=== PATIENT | female | born 1975 | race African-American/Black ===

== ENCOUNTER 2016-10-29 00:49 | Emergency (ER) | payer MEDICAID, OTHER ==
[~2016-10-29] VITALS: Ht 172.7 cm; Wt 102.1 kg
[2016-10-29] MEDS ORDERED: NS IV 1000 ML 1,000 ML IV ONE (01:33)
[2016-10-29] MEDS ORDERED: Namenda (01:35)
[2016-10-29] MEDS ORDERED: Neurontin (01:35)
[2016-10-29] MEDS ORDERED: Celebrex (01:35)
[2016-10-29] MEDS ORDERED: Trazadone (01:35)
[2016-10-29] MEDS ORDERED: TRAM50TA2 PO (01:35)
[2016-10-29] MEDS ORDERED: Ferrous Sulfate (01:35)
[2016-10-29] MEDS ORDERED: CLON0.5T3 PO (01:35)
[2016-10-29] MEDS ORDERED: Albuterol Sulfate (01:35)
[2016-10-29] MEDS ORDERED: Keppra (01:35)
[2016-10-29] MEDS ORDERED: Eliquis (01:35)
[2016-10-29] MEDS ORDERED: Anoro Ellipta (01:35)
[2016-10-29 01:41] LABS: BASOPHILS % (AUTO) 1 % (0-10); EOSINOPHILS % (AUTO) 0 % (0-10); LYMPHOCYTES # (AUTO) 2.1 X 10^3 (1.0-4.0); LYMPHOCYTES % (AUTO) 25 % (12-44); MEAN CORPUSCULAR HEMOGLOBIN 32 PG (25-34); MEAN CORPUSCULAR HGB CONC 33 G/DL (32-36); MEAN CORPUSCULAR VOLUME 96 FL (80-99); MEAN PLATELET VOLUME 10.5 FL (7.4-10.4); MONOCYTES # (AUTO) 0.5 X 10^3 (0.0-1.0); MONOCYTES % (AUTO) 7 % (0-12); NEUTROPHILS # (AUTO) 5.5 X 10^3 (1.8-7.8); NEUTROPHILS % (AUTO) 68 % (42-75); PLATELET COUNT 250 10^3/uL (130-400); RED BLOOD COUNT 4.36 10^6/uL (4.35-5.85); RED CELL DISTRIBUTION WIDTH 12.1 % (10.0-14.5); WHITE BLOOD COUNT 8.1 10^3/uL (4.3-11.0)
[2016-10-29 01:56] LABS: ALANINE AMINOTRANSFERASE 10 U/L (0-55); ALBUMIN 4.2 G/DL (3.2-4.5); ANION GAP 11 MMOL/L (5-14); ASPARTATE AMINO TRANSFERASE 11 U/L (5-34); BILIRUBIN,TOTAL 0.3 MG/DL (0.1-1.0); BLOOD UREA NITROGEN 5 MG/DL (7-18); BUN/CREATININE RATIO 7; CALCIUM 9.4 MG/DL (8.5-10.1); CARBON DIOXIDE 20 MMOL/L (21-32); CHLORIDE 108 MMOL/L (98-107); CREATININE SERUM 0.73 MG/DL (0.60-1.30); GFR ESTIMATED > 60; GLUCOSE 174 MG/DL (70-105); MAGNESIUM 2.3 MG/DL (1.8-2.4); POTASSIUM 3.9 MMOL/L (3.6-5.0); SALICYLATE < 5.0 MG/DL (5.0-20.0); SODIUM 139 MMOL/L (135-145); TOTAL PROTEIN 6.9 G/DL (6.4-8.2)
[2016-10-29 01:57] LABS: ACETAMINOPHEN < 10 UG/ML (10-30); ALCOHOL < 10 MG/DL (<10)
[2016-10-29 02:16] LABS: THYROID STIMULATING HORMONE 4.09 UIU/ML (0.35-4.94)
[2016-10-29] MEDS ORDERED: Myrbetriq (02:25)
[2016-10-29] MEDS ORDERED: Protonix (02:29)
[2016-10-29] MEDS ORDERED: Lisinopril (02:29)
[2016-10-29] MEDS ORDERED: Abilify (02:31)
[2016-10-29] MEDS ORDERED: Lantus (02:31)
--- NOTE | 2016-10-29 03:00 | ED Psychosocial ---
General Chief Complaint: Overdose Stated Complaint: LETHARGIC Nursing Triage Note: Transported per [facility] to Er for OD of Keppra 750 mg (6 pills missing). Unknown time of ingestion falling between [id number]. Nurse was called at 2330 and now present in ER. Pt is some lethargic appearing but spontaneously answers questions promptly. Source: patient, caregiver Exam Limitations: no limitations History of Present Illness Time seen by provider: 01:20 Initial Comments This 41-year-old woman is brought to the emergency room by staff from [facility]. She is in a staff to residential facility where she got a hold of her Keppra medication blister pack. She apparently consumed 6 doses of her Keppra this evening. Patient reports that this was an attempt to harm herself because of chronic depression and because she was upset with a staff member. Normally her medications are locked up but she was able to reach this packet of medications before the staff realized it. She does have a history of depression and suicidal ideation. Patient has significant mental disabilities and is not ambulatory. She is somnolent but otherwise asymptomatic at this time. Patient had been seen only one time by a behavioral health provider at [facility]. However, that provider is leaving and will not be available in the future. Allergies and Home Medications Allergies Coded Allergies: chlorpromazine (Verified Allergy, Unknown, 10/29/16) phenobarbital (Verified Allergy, Unknown, 10/29/16) Home Medications Clonazepam 0.5 Mg Tablet, 0.5 MG PO BID, (Reported) Tramadol HCl 50 Mg Tablet, 50 MG PO HS, (Reported) [Abilify] , (Reported) [Albuterol Sulfate] , (Reported) [Anoro Ellipta] , (Reported) [Celebrex] , (Reported) [Eliquis] , (Reported) [Ferrous Sulfate] , (Reported) [Keppra] , (Reported) [Lantus] , (Reported) [Lisinopril] , (Reported) [Myrbetriq] , (Reported) [Namenda] , (Reported) [Neurontin] , (Reported) [Protonix] , (Reported) [Trazadone] , (Reported) Constitutional: no symptoms reported EENTM: no symptoms reported Respiratory: no symptoms reported Cardiovascular: no symptoms reported Gastrointestinal: no symptoms reported Genitourinary: no symptoms reported Musculoskeletal: no symptoms reported Skin: no symptoms reported Psychiatric/Neurological: See HPI Past Rvlacyy-Yltotg-Fgklnp Hx Patient Social History Alcohol Use: Denies Use Smoking Status: Current Everyday Smoker Type Used: Cigarettes Recent Foreign Travel: No Contact w/Someone Who Travel: No Recent Infectious Disease Expo: No Surgeries HX Surgeries: No (none known) Respiratory Hx Respiratory Disorders: Yes Respiratory Disorders: Asthma, COPD Cardiovascular Hx Cardiac Disorders: Yes Cardiac Disorders: Hypertension Neurological Hx Neurological Disorders: Yes (lower extremity paralysis, MR) Neurological Disorders: Seizure Disorder Gastrointestinal Hx Gastrointestinal Disorders: Yes Gastrointestinal Disorders: Gastroesophageal Reflux, Chronic Constipation Musculoskeletal Hx Musculoskeletal Disorders: Yes (chronic pain) Endocrine Hx Endocrine Disorders: Yes Endocrine Disorders: Diabetes, Insulin dep, Hypothyroidsim Psychosocial Hx Psychiatric Problems: Yes (conversion disorder) Behavioral Health Disorders: PTSD, Schizophrenia, Depression Physical Exam Vital Signs Vital Sign - Last 12Hours 10/29/16 00:52 Temp 97.5 Pulse 90 Resp 20 B/P (MAP) 149/83 Pulse Ox 96 O2 Delivery Room Air Capillary Refill : Less Than 3 Seconds General Appearance: WD/WN, no apparent distress HEENT: PERRL/EOMI, normal ENT inspection Neck: normal inspection Respiratory: lungs clear, normal breath sounds, no respiratory distress, no accessory muscle use Cardiovascular: regular rate, rhythm, no edema, no murmur Gastrointestinal: normal bowel sounds, non tender, soft Extremities: normal inspection, no pedal edema Neurologic/Psychiatric: mgmt consultant II-XII nml as tested, alert, oriented x 3, motor weakness (bilateral lower extremities), other (somnolent but functional baseline ) Behavior/Eye Contact: cooperative, normal speech Skin: normal color, warm/dry Progress/Results/Core Measures Results/Orders Lab Results Laboratory Tests Test 10/29/16 01:10 10/29/16 02:04 Range/Units White Blood Count 8.1 4.3-11.0 10^3/uL Red Blood Count 4.36 4.35-5.85 10^6/uL Hemoglobin 14.0 11.5-16.0 G/DL Hematocrit 42 35-52 % Mean Corpuscular Volume 96 80-99 FL Mean Corpuscular Hemoglobin 32 25-34 PG Mean Corpuscular Hemoglobin Concent 33 32-36 G/DL Red Cell Distribution Width 12.1 10.0-14.5 % Platelet Count 250 130-400 10^3/uL Mean Platelet Volume 10.5 H 7.4-10.4 FL Neutrophils (%) (Auto) 68 42-75 % Lymphocytes (%) (Auto) 25 12-44 % Monocytes (%) (Auto) 7 0-12 % Eosinophils (%) (Auto) 0 0-10 % Basophils (%) (Auto) 1 0-10 % Neutrophils # (Auto) 5.5 1.8-7.8 X 10^3 Lymphocytes # (Auto) 2.1 1.0-4.0 X 10^3 Monocytes # (Auto) 0.5 0.0-1.0 X 10^3 Eosinophils # (Auto) 0.0 0.0-0.3 10^3/uL Basophils # (Auto) 0.0 0.0-0.1 10^3/uL Sodium Level 139 135-145 MMOL/L Potassium Level 3.9 3.6-5.0 MMOL/L Chloride Level 108 H 98-107 MMOL/L Carbon Dioxide Level 20 L 21-32 MMOL/L Anion Gap 11 5-14 MMOL/L Blood Urea Nitrogen 5 L 7-18 MG/DL Creatinine 0.73 0.60-1.30 MG/DL Estimat Glomerular Filtration Rate > 60 BUN/Creatinine Ratio 7 Glucose Level 174 H 70-105 MG/DL Calcium Level 9.4 8.5-10.1 MG/DL Magnesium Level 2.3 1.8-2.4 MG/DL Total Bilirubin 0.3 0.1-1.0 MG/DL Aspartate Amino Transf (AST/SGOT) 11 5-34 U/L Alanine Aminotransferase (ALT/SGPT) 10 0-55 U/L Alkaline Phosphatase 51 40-136 U/L Total Protein 6.9 6.4-8.2 G/DL Albumin 4.2 3.2-4.5 G/DL Thyroid Stimulating Hormone (TSH) 4.09 0.35-4.94 UIU/ML Free Thyroxine 0.80 0.70-1.48 NG/DL Serum Test, Qualitative NEGATIVE NEGATIVE Salicylates Level < 5.0 L 5.0-20.0 MG/DL Acetaminophen Level < 10 L 10-30 UG/ML Serum Alcohol < 10 <10 MG/DL Urine Opiates Screen NEGATIVE NEGATIVE Urine Oxycodone Screen NEGATIVE NEGATIVE Urine Methadone Screen NEGATIVE NEGATIVE Urine Propoxyphene Screen NEGATIVE NEGATIVE Urine Barbiturates Screen NEGATIVE NEGATIVE Ur Tricyclic Antidepressants Screen POSITIVE H NEGATIVE Urine Phencyclidine Screen NEGATIVE NEGATIVE Urine Amphetamines Screen NEGATIVE NEGATIVE Urine Methamphetamines Screen NEGATIVE NEGATIVE Urine Benzodiazepines Screen NEGATIVE NEGATIVE Urine Cocaine Screen NEGATIVE NEGATIVE Urine Cannabinoids Screen NEGATIVE NEGATIVE My Orders Orders - DANIEL BURGOS MD Acetaminophen (10/29/16 01:30) Cbc With Automated Diff (10/29/16 01:30) Comprehensive Metabolic Panel (10/29/16 01:30) Drug Screen Stat (Urine) (10/29/16 01:30) Hcg,Qualitative Serum (10/29/16 01:30) Magnesium (10/29/16 01:30) Saline Lock/Iv-Start (10/29/16 01:30) Ekg Tracing (10/29/16 01:30) Monitor-Rhythm Ecg Trace Only (10/29/16 01:30) Alcohol (10/29/16 01:30) Salicylate (10/29/16 01:30) Thyroid Stimulating Hormone (10/29/16 01:30) Free T4 (Free Thyroxine) (10/29/16 01:30) Ns Iv 1000 Ml (Sodium Chloride 0.9%) (10/29/16 01:33) Catheter 8f Uni Cath (10/29/16 04:50) Medications Given in ED Current Medications Medications Dose Ordered Sig/Coby Route Start Time Stop Time Status Last Admin Dose Admin Sodium Chloride 1,000 ml @ 0 mls/hr Q0M ONCE IV 10/29/16 01:33 10/29/16 01:34 DC 10/29/16 01:53 999 MLS/HR Vital Signs/I&O Vital Sign - Last 12Hours 10/29/16 10/29/16 00:52 04:30 Temp 97.5 97.5 Pulse 90 71 Resp 20 16 B/P (MAP) 149/83 Pulse Ox 96 97 O2 Delivery Room Air Blood Pressure Mean: 105 Progress Note : Progress Note Case was reviewed with poison control by nursing staff. They recommended observing for 4 hours postingestion. If patient is asymptomatic at that time she may return home. Level of alertness was at baseline after the 4 hour postingestion timeframe. I contacted the [facility] screener to discuss outpatient follow-up. They will contact nursing staff in the morning to arrange follow- up. In the meantime, staff is to continue observing the patient and follow suicide precautions. Departure Impression Impression: Primary Impression: Drug overdose Qualified Codes: T50.902A - Poisoning by unspecified drugs, medicaments and biological substances, intentional self-harm, initial encounter Additional Impression: Suicidal ideation Disposition: 01 HOME, SELF-CARE Condition: Stable Departure-Patient Inst. Decision time for Depature: 02:40 Patient Instructions: ALCOHOL AND SUBSTANCE ABUSE, Suicide Prevention Add. Discharge Instructions: Keep all medications, sharp items, and potential strangulation items away from patient's reach. Do not leave her unsupervised until follow-up with behavioral health tomorrow. Return to the ER if symptoms worsen. Skip the morning dose of Keppra but continue other medications as previously prescribed. A career services representative from the [facility] behavioral health office will call in the morning to arrange follow-up. All discharge instructions reviewed with patient and/or family. Voiced understanding. Copy Copies To 1: ROGER CHOI MD, JOSHUA T MD October 29, 2016 03:00
[2016-10-29 04:30] VITALS: BP 146/85
== END 2016-10-29 04:30 ==
LOC: EDUNIT# 00:49 → ER 00:53
DX: T42.6X2A Poisoning by other antiepileptic and sedative-hypnotic drugs, intentional self-harm, initial encounter (principal); R40.0 Somnolence; F33.9 Major depressive disorder, recurrent, unspecified; E11.9 Type 2 diabetes mellitus without complications; G40.909 Epilepsy, unspecified, not intractable, without status epilepticus; F17.210 Nicotine dependence, cigarettes, uncomplicated; Z79.4 Long term (current) use of insulin; Z79.899 Other long term (current) drug therapy
CPT/HCPCS: 36415; 51702; 80053; 80306; 80320; 80329; 83735; 84439; 84443; 84703; 85025; 93005; 93041; 96360; 96361

== ENCOUNTER → 2016-12-12 | Outpatient (CLI) | payer MEDICAID ==
[~2016-12-12] MED LIST: Abilify; Albuterol Sulfate; Anoro Ellipta; CLON0.5T3 PO; Celebrex; Eliquis; Ferrous Sulfate; GADOBUTROL 10 MMOL/10 ML (GADAVIST) VIAL IV ONE; Keppra; Lantus; Lisinopril; Myrbetriq; Namenda; Neurontin; Protonix; TRAM50TA2 PO; Trazadone
[2016-12-12 10:02] LABS: BLOOD UREA NITROGEN 8 MG/DL (7-18); BUN/CREATININE RATIO 10; CREATININE SERUM 0.78 MG/DL (0.60-1.30); GFR ESTIMATED > 60
--- NOTE | 2016-12-12 12:36 | Diagnostic Imaging Report ---
PROCEDURE: MR imaging of the brain with and without contrast. TECHNIQUE: Multiplanar, multisequence MR imaging of the brain was performed with and without contrast. INDICATION: Altered mental status. Aggression. Hallucinations. CONTRAST: 10 mL of Gadavist is administered intravenously. FINDINGS: There is no diffusion restriction to suggest an acute infarct or other diffusion abnormality. There is normal fagan and white matter signal. No brain edema or demyelinating lesions. No enhancing mass. No hydrocephalus. No extra-axial fluid collection or mass is seen. The pituitary gland is normal in size. There is no hypothalamic or pineal region mass. The internal auditory canals and inner ear structures appear symmetric. The central vascular flow-voids appear preserved. The orbits and paranasal sinuses appear grossly unremarkable. There is some mucosal thickening along the middle and inferior turbinates narrowing the nasal passages and the nasal cavity. IMPRESSION: No significant abnormality. Dictated by: Dictated on workstation # [id number]
== END ==
LOC: RAD 09:28
PROVIDERS: ATTEND Nurse Practitioner Family
DX: R41.82 Altered mental status, unspecified (principal); R44.3 Hallucinations, unspecified; F91.8 Other conduct disorders
CPT/HCPCS: 36415; 70553; 82565; 84520

== ENCOUNTER 2016-12-18 09:56 | Outpatient (RCR) | payer MEDICAID ==
[~2016-12-18 09:56] MED LIST changes: -GADOBUTROL 10 MMOL/10 ML (GADAVIST) VIAL IV ONE
== END 2016-12-18 11:53 | disposition home or self-care (01) ==
PROVIDERS: ATTEND Family Medicine
DX: R53.1 Weakness (principal)

== ENCOUNTER → 2017-01-02 | Outpatient (CLI) | payer MEDICAID ==
--- NOTE | 2017-01-02 12:35 | Diagnostic Imaging Report ---
Bilateral breast ultrasound. INDICATION: Bilateral lumps in the medial aspect of each breast. There is a nodule seen on mammography in the outer aspect of the left breast. FINDINGS: The retroareolar and four-quadrant regions of both breasts were scanned. In the right breast no abnormality is identified. In the left breast there is an 8 x 6 x 6-mm lesion which demonstrates partially cystic and partially hypoechoic components. There is through transmission and no internal vascularity. This is likely related to a cyst with internal debris rather than solid component. It is located at 3 o'clock zone, 9 cm from the nipple and correlates with the size and location of the mammographic abnormality seen. IMPRESSION: At 9 o'clock zone in the left breast there is an 8-mm complex cystic lesion matching the nodule seen on mammography, likely a complicated cyst with internal debris. Six-month followup ultrasound is recommended to ensure stability. ACR BI-RADS Category 3: Probably benign findings. Result letter will be mailed to the patient. Note: At least 10% of breast cancer is not imaged by mammography. Dictated by: Dictated on workstation # [id number]
--- NOTE | 2017-01-02 12:52 | Diagnostic Imaging Report ---
EXAMINATION: Bilateral diagnostic mammogram with tomography. The current study was also evaluated with a Computer Aided Detection (CAD) system. COMPARISON: No prior study is available for comparison. INDICATION: Bilateral medial breast lumps. FINDINGS: The breasts are composed of heterogeneously dense parenchyma which may decrease mammographic sensitivity. There are bilateral markers in the palpable area identified. These correlate with the normal appearance of the breast tissue. There is a circumscribed nodule seen in the lateral aspect of the left breast confirmed on tomographic view axial image 1365. The right breast demonstrates no definite focal lesion. IMPRESSION: There is a 9 mm circumscribed mass in the lateral aspect of the left breast. Ultrasound evaluation is pending. ACR BI-RADS Category 0: Incomplete. (Needs additional imaging evaluation). Result letter will be mailed to the patient. Note: At least 10% of breast cancer is not imaged by mammography. Dictated by: Dictated on workstation # [id number]
== END ==
LOC: RAD 08:26
PROVIDERS: ATTEND Family Medicine
DX: N63 Unspecified lump in breast (principal)
CPT/HCPCS: 77066

== ENCOUNTER 2017-02-12 14:30 | Outpatient (RCR) | payer MEDICAID | END 2017-02-20 13:02 | disposition home or self-care (01) | PROVIDERS: ATTEND Family Medicine | DX: R53.1 Weakness (principal) ==

== ENCOUNTER → 2017-07-15 | Outpatient (CLI) | payer MEDICAID ==
--- NOTE | 2017-07-15 15:26 | Diagnostic Imaging Report ---
Indication: Followup of left breast nodule. Comparison: Correlation is made with prior exam from 01/02/2017. Sonographic interrogation of the left breast was performed. Previously noted complex nodule at the 3 o'clock location of the left breast is no longer visualized. There is a new simple appearing cyst at the 2 o'clock location measuring 5 mm x 3 mm x 6 mm. There is posterior acoustic enhancement. No internal vascularity is seen. No other masses are identified. Impression: BI-RADS category 2 1. Resolution of previously noted complex cyst 3 o'clock location left breast. 2. New tiny simple appearing left breast cyst 2 o'clock location. ACR BI-RADS Category 2: Benign findings. Dictated by: Dictated on workstation # [id number]
== END ==
LOC: RAD 11:16
PROVIDERS: ATTEND Family Medicine
DX: N63.20 Unspecified lump in the left breast, unspecified quadrant (principal)
CPT/HCPCS: 76642

== ENCOUNTER 2018-03-12 10:59 | Outpatient (RCR) | payer MEDICAID ==
[~2018-03-12 10:59] MED LIST changes: +CLON0.5T13 PO; -CLON0.5T3 PO
== END 2018-03-15 13:29 | disposition home or self-care (01) ==
PROVIDERS: ATTEND Family Medicine
DX: R29.898 Other symptoms and signs involving the musculoskeletal system (principal); M62.50 Muscle wasting and atrophy, not elsewhere classified, unspecified site

== ENCOUNTER 2018-03-26 10:43 | Outpatient (RCR) | payer MEDICAID | END 2018-03-26 12:12 | disposition home or self-care (01) | PROVIDERS: ATTEND Family Medicine | DX: R29.898 Other symptoms and signs involving the musculoskeletal system (principal); M62.50 Muscle wasting and atrophy, not elsewhere classified, unspecified site ==

== ENCOUNTER → 2018-07-08 | Outpatient (CLI) | payer MEDICAID ==
--- NOTE | 2018-07-08 21:30 | Diagnostic Imaging Report ---
INDICATION: Routine screening. Comparison is made with prior exam from 01/02/2017. 2-D and 3-D bilateral screening mammography was performed with CAD. The current study was also evaluated with a Computer Aided Detection (CAD) system. FINDINGS: Both breasts remain heterogeneously dense, limiting the sensitivity of mammography. There appears to be ductal ectasia bilaterally which may be increased since prior exam. Circumscribed density in the retroareolar left breast is again noted consistent with a cyst. This is slightly larger. No suspicious calcifications are seen. Axillae are unremarkable. IMPRESSION: There has been increase in the degree of ductal ectasia bilaterally. In addition, there is an enlarging circumscribed lesion in the retroareolar left breast since prior study. Further evaluation with ultrasound of bilateral retroareolar regions is recommended for further evaluation. ACR BI-RADS Category 0: Incomplete. (Needs additional imaging evaluation). Result letter will be mailed to the patient. Note: At least 10% of breast cancer is not imaged by mammography. Dictated by: Dictated on workstation # [id number]
== END ==
LOC: RAD 11:26
PROVIDERS: ATTEND Family Medicine
DX: Z12.31 Encounter for screening mammogram for malignant neoplasm of breast (principal); N64.59 Other signs and symptoms in breast
CPT/HCPCS: 77067

== ENCOUNTER → 2018-08-18 | Outpatient (CLI) | payer MEDICAID ==
--- NOTE | 2018-08-18 20:46 | Diagnostic Imaging Report ---
INDICATION: Abnormal mammogram showing questionable ductal ectasia. Study is performed for further evaluation. COMPARISON: Correlation is made with recent screening mammogram from 07/08/2018. EXAMINATION: Sonographic interrogation of the retroareolar regions was performed, bilaterally. FINDINGS: Significant ductal dilatation is seen, bilaterally. No intraductal mass is identified on either side. There does appear to be a complex cyst in the retroareolar left breast 6 clock location corresponding to the circumscribed density mammographically. This measures approximately 17 mm x 7 mm x 9 mm. This does show some internal complexity but no internal vascularity. No posterior acoustic shadowing is seen. IMPRESSION: Bilateral ductal dilatation without evidence of intraductal mass. There is a complex cyst, retroareolar 6 o'clock location of left breast, corresponding to the mammographic density. Followup left breast ultrasound in six months is recommended to confirm stability. ACR BI-RADS Category 3: Probably benign findings. Result letter will be mailed to the patient. Note: At least 10% of breast cancer is not imaged by mammography. Dictated by: Dictated on workstation # [id number]
== END ==
LOC: RAD 14:02
PROVIDERS: ATTEND Family Medicine
DX: N60.02 Solitary cyst of left breast (principal); N64.89 Other specified disorders of breast
CPT/HCPCS: 76642

== ENCOUNTER → 2019-07-27 | Outpatient (CLI) | payer MEDICAID ==
[~2019-07-27] MED LIST changes: -CLON0.5T13 PO; +CLON0.5T4 PO; -TRAM50TA2 PO; +TRM50T PO
--- NOTE | 2019-07-27 11:22 | Diagnostic Imaging Report ---
INDICATION: Six month followup for breast nodule. TECHNIQUE: Real-time grayscale images were obtained of the left breast in various projections. COMPARISON: 02/04/2019. FINDINGS: There is moderate ductal ectasia in the left breast. There is no evidence of an intraductal mass. In the 6 o'clock position of the left breast retroareolar, there is a 1.7 x 0.6 x 0.7 cm mass with some internal debris. This is essentially unchanged when compared to the prior examination. No other discrete solid or cystic mass is appreciated. IMPRESSION: Stable complex cyst at the 6 o'clock position retroareolar left breast. Recommend an additional 6 month followup to ensure stability at which time the patient is due for bilateral mammography. ACR BI-RADS Category 3: Probably benign findings. Unchanged moderate ductal ectasia Dictated by: Dictated on workstation # [id number]
== END ==
LOC: RAD 09:53
PROVIDERS: ATTEND Family Medicine
DX: N60.02 Solitary cyst of left breast (principal)
CPT/HCPCS: 76642

== ENCOUNTER → 2020-05-17 | Outpatient (CLI) | payer MEDICAID ==
--- NOTE | 2020-05-17 12:26 | Diagnostic Imaging Report ---
EXAM: Bilateral breast ultrasound INDICATION: Breast nodules The left breast limited ultrasound exam of 07/27/2019 noted ductal ectasia in the retroareolar region of the left breast as well as a 1.7 x 0.6 x 0.7 cm well-circumscribed avascular hypoechoic lesion with a few internal echoes. This was felt to represent a small slightly complex cyst. The diagnostic mammogram performed prior to this study revealed that the retroareolar region of the left breast seemed similar to the prior exam. There is still ductal ectasia in the retroareolar region of the left breast. There is no sign of an intraductal solid mass. The suspected complex cyst within the retroareolar region seen previously does measure smaller on this exam. The cyst is now estimated to be 1.2 x 0.8 cm. This cyst still has a generally benign appearance. The mammogram performed earlier today did note a small asymmetry in the upper outer aspect of the right breast. The ultrasound examination of the area reveals a roughly 4 x 5 mm fairly well-circumscribed solid lesion in the 10 o'clock position. This may well correspond to the asymmetry seen on the mammogram. This finding does not have an aggressive appearance but it does seem be to be solid. Consequently, although this could represent a small fibroadenoma, the possibility that this is a malignant process cannot be entirely excluded. Ultrasound guided biopsy would be recommended. IMPRESSION: 1. The ductal ectasia in the retroareolar region of the left breast and the suspected complicated cyst in this area seen on the prior study do not appear to have changed significantly. There is no evidence for malignancy in this region. 2. Other small solid nodule in the 10 o'clock position of the right breast is of uncertain etiology. Recommendations as above. 3. These results were discussed with Dr. Chantel Delgadillo. ACR category 4 suspicious. ACR BI-RADS Category 4: Suspicious abnormality. Result letter will be mailed to the patient. Note: At least 10% of breast cancer is not imaged by mammography. Dictated by: Dictated on workstation # [id number]
--- NOTE | 2020-05-17 13:36 | Diagnostic Imaging Report ---
EXAM: Digital mammogram, bilateral diagnostic. INDICATION: Follow-up complex cyst, left breast COMPARISON: This study was compared to the prior exams of 02/04/2019, 07/08/2018 and 01/02/2017. At this time, there are no current complaints. FINDINGS: The fibroglandular tissue in both breasts is heterogeneously dense. This does limit the sensitivity of this exam. The previous exams of 02/04/2019 and 07/08/2018 have noted a benign-appearing nodular density in the retroareolar region of the left breast as well as ductal ectasia. The ultrasound exam performed on 07/27/2019, also identified a stable complex cyst in the 6 o'clock position of the left breast. On this exam, the rounded asymmetry in the 6 o'clock position seen previously is again evident and no different. The ductal ectasia also seems similar to the prior exam. There is no primary or secondary sign of malignancy involving the left breast noted otherwise. Reportedly, ultrasound of the left breast is pending for additional study. In the interval since the prior study of 4-5 mm asymmetry has developed in the 10 o'clock position of the right breast approximately 7-8 cm from the nipple. This density is not as conspicuous on the compression views of this area and may merely be secondary to fibroglandular tissue alone. Even so, I would recommend that ultrasound of the right breast be performed, as well. IMPRESSION: Ultrasound of both breasts would be recommended for further evaluation. ACR BI-RADS Category 0: Incomplete. (Needs additional imaging evaluation). Result letter will be mailed to the patient. Note: At least 10% of breast cancer is not imaged by mammography. Dictated by: Dictated on workstation # [id number]
== END ==
LOC: RAD 09:45
PROVIDERS: ATTEND Family Medicine
DX: N63.20 Unspecified lump in the left breast, unspecified quadrant (principal); N63.11 Unspecified lump in the right breast, upper outer quadrant; N60.02 Solitary cyst of left breast
CPT/HCPCS: 76642; 77066; G0279; 77062

== ENCOUNTER → 2020-06-01 | Outpatient (CLI) | payer MEDICAID ==
[~2020-06-01] MED LIST changes: +LIDOCAINE 1% INJ 20 ML 20 ML VIAL INJ ONE; +LIDOCAINE 1% INJ 20 ML 20 ML VIAL ONE
--- NOTE | 2020-06-01 11:09 | Diagnostic Imaging Report ---
INDICATION: Right breast nodule. Patient brought to the ultrasound suite placed on to the table in the supine position. Ultrasound imaging of the right breast was performed to evaluate appropriate entry site. The right breast was then prepped and draped in usual sterile fashion. Small amount of 1% lidocaine was utilized for local anesthesia.. A handheld mammotome vacuum-assisted device was advanced into the right breast and placed with the biopsy chamber just deep to the hypoechoic nodule at the 11 o'clock location. Total of 4 core biopsies were obtained with vacuum-assisted device and a 13-gauge needle. A mammotome was removed. A marker clip was then deployed. The patient tolerated the procedure well and was sent for post procedure mammogram in satisfactory condition. IMPRESSION: Successful ultrasound-guided core biopsy of the hypoechoic nodule at 11 o'clock location right breast, utilizing a vacuum-assisted device. Pathology results are currently pending. Dictated by: Dictated on workstation # [id number]
--- NOTE | 2020-06-01 14:08 | Diagnostic Imaging Report ---
INDICATION: Right breast nodule, status post biopsy. Unilateral right 2-D CC and MLO mammography demonstrate a marker clip in the upper outer right breast mid depth status post nodule biopsy. IMPRESSION: Post biopsy changes upper outer right breast. Dictated by: Dictated on workstation # [id number]
== END ==
LOC: RAD 09:00
PROVIDERS: ATTEND Family Medicine
DX: N60.31 Fibrosclerosis of right breast (principal); N63.11 Unspecified lump in the right breast, upper outer quadrant
CPT/HCPCS: 19083; 77065; 88305; G0279

== ENCOUNTER → 2020-12-06 | Outpatient (CLI) | payer MEDICAID ==
[~2020-12-06] MED LIST changes: -LIDOCAINE 1% INJ 20 ML 20 ML VIAL INJ ONE; -LIDOCAINE 1% INJ 20 ML 20 ML VIAL ONE
--- NOTE | 2020-12-06 13:29 | Diagnostic Imaging Report ---
INDICATION: Followup right breast biopsy with benign result. COMPARISON: 05/17/2020, 06/01/2020, and 02/04/2019. TECHNIQUE: Unilateral right 2D and 3D diagnostic mammography was performed with CAD. FINDINGS: Scattered fibroglandular densities are identified bilaterally. There is a biopsy marker clip in the upper and outer aspect of the right breast at mid depth. No new mass or malignant appearing microcalcifications are seen. The right axilla is unremarkable. IMPRESSION: Post biopsy changes. There are no mammographic features suspicious for malignancy. ACR BI-RADS Category 2: Benign findings. Result letter will be mailed to the patient. Note: At least 10% of breast cancer is not imaged by mammography. Dictated by: Dictated on workstation # [id number]
== END ==
LOC: RAD 12:45
PROVIDERS: ATTEND Family Medicine
DX: R92.8 Other abnormal and inconclusive findings on diagnostic imaging of breast (principal)
CPT/HCPCS: 77065; G0279

== ENCOUNTER → 2021-10-31 | Outpatient (CLI) | payer MEDICAID | LOC: WOUNDCARE 10:13 | PROVIDERS: ATTEND Family Medicine | DX: S80.822A Blister (nonthermal), left lower leg, initial encounter (principal); E11.65 Type 2 diabetes mellitus with hyperglycemia; I89.0 Lymphedema, not elsewhere classified; E66.01 Morbid (severe) obesity due to excess calories; F71 Moderate intellectual disabilities; R26.89 Other abnormalities of gait and mobility; M62.81 Muscle weakness (generalized); F17.218 Nicotine dependence, cigarettes, with other nicotine-induced disorders | CPT/HCPCS: A6212; G0463; 99213 ==

== ENCOUNTER → 2021-11-08 | Outpatient (CLI) | payer MEDICAID | LOC: WOUNDCARE 11:24 | PROVIDERS: ATTEND Family Medicine | DX: S80.822A Blister (nonthermal), left lower leg, initial encounter (principal); E11.65 Type 2 diabetes mellitus with hyperglycemia; I89.0 Lymphedema, not elsewhere classified; F17.218 Nicotine dependence, cigarettes, with other nicotine-induced disorders; F71 Moderate intellectual disabilities; M62.81 Muscle weakness (generalized); E66.01 Morbid (severe) obesity due to excess calories; R26.89 Other abnormalities of gait and mobility; Z68.41 Body mass index [BMI] 40.0-44.9, adult | CPT/HCPCS: 99212 ==

== ENCOUNTER → 2022-02-14 | Outpatient (CLI) | payer MEDICAID ==
--- NOTE | 2022-02-14 12:01 | Diagnostic Imaging Report ---
3D bilateral screening mammogram performed with CAD. This study was compared to the prior exams of 12/06/2020, 05/17/2020 and 02/04/2019. At this time, there are no current complaints. There are scattered fibroglandular densities in both breasts which could obscure a lesion. The ductal ectasia in the left breast seen on the prior exam of 05/17/2020 is not nearly as striking on this study. The biopsy clip and the benign-appearing nodular density in the upper-outer quadrant of the right breast noted previously are again visualized and stable. There is no primary or secondary sign of malignancy noted. IMPRESSION: 1. There is no evidence for malignancy. ACR BI-RADS Category 1: Negative. Result letter will be mailed to the patient. Note: At least 10% of breast cancer is not imaged by mammography. Dictated by: Dictated on workstation # [id number]
--- NOTE | 2022-02-14 15:46 | Diagnostic Imaging Report ---
PROCEDURE: US Non-ob pelvis comp/trans. TECHNIQUE: Multiple realtime grayscale images were obtained of the pelvis in various projections endovaginally. Transabdominal imaging was also performed. INDICATION: Abnormal uterine bleeding. COMPARISON: None Available FINDINGS: Transabdominal: The uterus and adnexa have a unremarkable transabdominal appearance. Transvaginal images were obtained for additional characterization. Transvaginal: The uterus is anteverted and measures 9.2 x 5.6 x 5.8 cm. A heterogeneous area is seen within the uterus measuring 3.0 x 1.9 x 2.6 cm and demonstrates internal vascularity. The endometrial stripe measures 1.0 cm and has a normal appearance. The ovaries are not visualized due to overlying bowel gas. No adnexal masses. No free fluid is seen in the pelvis. IMPRESSION: 1. Likely uterine fibroid within the anterior aspect of the uterus. 2. Nonvisualization of the ovaries due to bowel gas. No adnexal mass or free fluid. Dictated by: Dictated on workstation # [id number]
== END ==
LOC: RAD 10:00
PROVIDERS: ATTEND Family Medicine
DX: Z12.31 Encounter for screening mammogram for malignant neoplasm of breast (principal); D25.9 Leiomyoma of uterus, unspecified
CPT/HCPCS: 76830; 76856; 77063; 77067

== ENCOUNTER 2022-06-20 08:26 | Observation (INO) | payer MEDICAID ==
[~2022-06-20] VITALS: Ht 165.1 cm; Wt 104.2 kg
--- NOTE | 2022-06-20 08:54 | ED General ---
General Chief Complaint: Overdose Stated Complaint: POSSIBLE PRESCRIPTION OVERDOSE Nursing Triage Note: ARRIVED VIA WC FROM [place]. STATES STAFF ACCIDENTLY GAVE HER 100U OF LANTUS THIS AM AND WAS SUPPOSE TO HAVE 20U OF LANTUS. BLOOD SUGAR BEFORE INSULIN GIVEN WAS 110. INSULIN GIVEN AT APPX 0700. PT ALERT. Source of Information: Patient, Caregiver Exam Limitations: No Limitations (REBECCA PAUL) History of Present Illness Date Seen by Provider: Jun 20, 2022 Time Seen by Provider: 08:48 Initial Comments 47 F with pmh of DMII COPD HTN hypothyroidism depression and schizophrenia presents to ED for insulin overdose. Pt receive 80 units of daily long acting insulin instead of her normal 20 units due to an error on the medical personal from [facility] who administers her daily meds. Pt reports feeling some fatigue and mild head pressure but reports feeling these prior to insulin administration. Pt ate an entire bowl of cereal today 5 min prior to insulin. Pt has not had any food or drink since insulin. Reports no changes in bowel or bladder movements. Per pleating supervisor, pt has not had any changes in mental status from baseline. Pt denies any pain, nausea, vomiting, diaphoresis, or confusion. Timing/Duration: 1 Hour Associated Systoms: No Chest Pain, No Cough, No Diaphoresis, No Fever/Chills, No Malaise, No Nausea/Vomiting (REBECCA PAUL) Allergies and Home Medications Allergies Coded Allergies: chlorpromazine (Verified Allergy, Unknown, 10/29/16) haloperidol (Verified Allergy, Unknown, 06/20/22) phenobarbital (Verified Allergy, Unknown, 10/29/16) Patient Home Medication List Home Medication List Reviewed: Yes (REBECCA PAUL) Acetaminophen (Tylenol) 325 Mg Tablet, 650 MG PO Q6H PRN for HEADACHE, (Reported) Entered as Reported by: DIONNE CARTAGENA on 06/20/221527 Last Action: Held Albuterol Sulfate (Albuterol Sulfate) 2.5 Mg/0.5 Ml Vial.neb, 2.5 MG INH Q4H PRN for SHORTNESS OF BREATH, (Reported) Entered as Reported by: DIONNE CARTAGENA on 06/20/221527 Last Action: Held Albuterol Sulfate (Ventolin Hfa) 90 Mcg Hfa.aer.ad, 2 PUFF INH Q4H PRN for SHORTNESS OF BREATH, (Reported) Entered as Reported by: DIONNE CARTAGENA on 06/20/221527 Last Action: Held Aripiprazole (Aripiprazole) 5 Mg Tablet, 5 MG PO HS, (Reported) Entered as Reported by: DIONNE CARTAGENA on 06/20/221527 Last Action: Converted Budesonide/Formoterol Fumarate (Budesonide-Formoterol 160-4.5) 160 Mcg-4.5 Mcg/Actuation Hfa.aer.ad, 2 PUFF INH BID, (Reported) Entered as Reported by: IDONNE CARTAGENA on 06/20/221527 Last Action: Converted Calcium Carbonate (Tums) 200 Mg Calcium (500 Mg) Tab.chew, 500 MG PO HS, (Reported) Entered as Reported by: DIONNE CARTAGENA on 06/20/221527 Last Action: Reviewed Cetirizine HCl (Cetirizine HCl) 10 Mg Tablet, 10 MG PO DAILY, (Reported) Entered as Reported by: DIONNE CARTAGENA on 06/20/221527 Last Action: Converted Clonidine HCl (Clonidine HCl) 0.1 Mg Tablet, 0.1 MG PO 0730,1600, (Reported) Entered as Reported by: DIONNE CARTAGENA on 06/20/221527 Last Action: Continued Fexofenadine HCl (Allergy Relief) 60 Mg Tablet, 60 MG PO Q12H, (Reported) Entered as Reported by: DIONNE CARTAGENA on 06/20/221527 Last Action: Converted Fluticasone Propionate (Flonase Allergy Relief) 50 Mcg/Actuation Tyrone.susp, 2 SPRAY NSEACH DAILY, (Reported) Entered as Reported by: DIONNE CARTAGENA on 06/20/221527 Last Action: Converted Insulin Aspart (Novolog Flexpen) 100 Unit/Ml (3 Ml) Solution, UNITS SC AC, (Reported) Entered as Reported by: DIONNE CARTAGENA on 06/20/221527 Last Action: Held Insulin Glargine-Yfgn (Insulin Glargine-Yfgn) 100 Unit/Ml (3 Ml) Insuln.pen, 20 UNITS SC BID, (Reported) Entered as Reported by: DIONNE CARTAGENA on 06/20/221527 Last Action: Held Lactulose (Lactulose) 10 Gram/15 Ml Solution, 30 ML PO BID, (Reported) Entered as Reported by: DIONNE CARTAGENA on 06/20/221527 Last Action: Continued Levetiracetam (Levetiracetam) 500 Mg Tablet, 1,500 MG PO BID, (Reported) Entered as Reported by: DIONNE CARTAGENA on 06/20/221527 Last Action: Continued Lisinopril (Lisinopril) 5 Mg Tablet, 5 MG PO DAILY, (Reported) Entered as Reported by: DIONNE CARTAGENA on 06/20/221527 Last Action: Continued Olmsted Carbonate (Olmsted Carbonate) 600 Mg Capsule, 600 MG PO BID, (Reported) Entered as Reported by: DIONNE CARTAGENA on 06/20/221527 Last Action: Converted Magnesium Citrate (Magnesium Citrate) 296 Ml Solution, 296 ML PO DAILY PRN for CONSTIPATION-9TH LINE, (Reported) Entered as Reported by: DIONNE CARTAGENA on 06/20/221527 Last Action: Held Magnesium Hydroxide (Milk of Magnesia) 2,400 Mg/10 Ml Oral.susp, 30 ML PO DAILY PRN for CONSTIPATION-7TH LINE, (Reported) Entered as Reported by: DIONNE CARTAGENA on 06/20/221527 Last Action: Held Meloxicam (Meloxicam) 15 Mg Tablet, 15 MG PO DAILY, (Reported) Entered as Reported by: DIONNE CARTAGENA on 06/20/221527 Last Action: Converted Neomycin/Bacitracin/Polymyxinb (Triple Antibiotic Ointment Pkt) 3.5 Mg-400 Unit- 5,000 Unit/Gram Oint.pack, 1 APPLIC TP BID, (Reported) Entered as Reported by: DIONNE CARTAGENA on 06/20/221527 Last Action: Held Paliperidone Palmitate (Invega Trinza) 819 Mg/2.63 Ml Syringe, 819 MG IM EVERY 3 MONTHS, (Reported) Entered as Reported by: DIONNE CARTAGENA on 06/20/221527 Last Action: Held Pregabalin (Pregabalin) 100 Mg Capsule, 100 MG PO BID, (Reported) Entered as Reported by: DIONNE CARTAGENA on 06/20/221527 Last Action: Continued Simvastatin (Simvastatin) 20 Mg Tablet, 20 MG PO HS, (Reported) Entered as Reported by: DIONNE CARTAGENA on 06/20/221527 Last Action: Converted Spironolactone (Spironolactone) 50 Mg Tablet, 50 MG PO BID, (Reported) Entered as Reported by: DIONNE CARTAGENA on 06/20/221527 Last Action: Converted Temazepam (Temazepam) 30 Mg Capsule, 30 MG PO HS, (Reported) Entered as Reported by: DIONNE CARTAGENA on 06/20/221527 Last Action: Converted Trazodone HCl (Trazodone HCl) 100 Mg Tablet, 100 MG PO HS, (Reported) Entered as Reported by: DIONNE CARTAGENA on 06/20/221527 Last Action: Continued Valacyclovir HCl (Valacyclovir) 1,000 Mg Tablet, 1,000 MG PO DAILY, (Reported) Entered as Reported by: DIONNE CARTAGENA on 06/20/221527 Last Action: Converted Discontinued Medications Clonazepam (Clonazepam) 0.5 Mg Tablet, 0.5 MG PO BID, (Reported) Discontinued Reason: No Longer Taking Entered as Reported by: PRADEEP ARAUZ on 10/29/16134 Last Action: Discontinued Tramadol HCl (Tramadol HCl) 50 Mg Tablet, 50 MG PO HS, (Reported) Discontinued Reason: No Longer Taking Entered as Reported by: PRADEEP ARAUZ on 10/29/16134 Last Action: Discontinued [Abilify] , (Reported) Discontinued Reason: No Longer Taking Entered as Reported by: PRADEEP ARAUZ on 10/29/16230 Last Action: Discontinued [Albuterol Sulfate] , (Reported) Discontinued Reason: No Longer Taking Entered as Reported by: PRADEEP ARAUZ on 10/29/16134 Last Action: Discontinued [Anoro Ellipta] , (Reported) Discontinued Reason: No Longer Taking Entered as Reported by: PRADEEP ARAUZ on 10/29/16134 Last Action: Discontinued [Celebrex] , (Reported) Discontinued Reason: No Longer Taking Entered as Reported by: PRADEEP ARAUZ on 10/29/16134 Last Action: Discontinued [Eliquis] , (Reported) Discontinued Reason: No Longer Taking Entered as Reported by: PRADEEP ARAUZ on 10/29/16134 Last Action: Discontinued [Ferrous Sulfate] , (Reported) Discontinued Reason: No Longer Taking Entered as Reported by: PRADEEP ARAUZ on 10/29/16134 Last Action: Discontinued [Keppra] , (Reported) Discontinued Reason: No Longer Taking Entered as Reported by: PRADEEP ARAUZ on 10/29/16134 Last Action: Discontinued [Lantus] , (Reported) Discontinued Reason: No Longer Taking Entered as Reported by: PRADEEP ARAUZ on 10/29/16230 Last Action: Discontinued [Lisinopril] , (Reported) Discontinued Reason: No Longer Taking Entered as Reported by: PRADEEP ARAUZ on 10/29/16228 Last Action: Discontinued [Myrbetriq] , (Reported) Discontinued Reason: No Longer Taking Entered as Reported by: PRADEEP ARAUZ on 10/29/16224 Last Action: Discontinued [Namenda] , (Reported) Discontinued Reason: No Longer Taking Entered as Reported by: PRADEEP ARAUZ on 10/29/16134 Last Action: Discontinued [Neurontin] , (Reported) Discontinued Reason: No Longer Taking Entered as Reported by: PRADEEP ARAUZ on 10/29/16134 Last Action: Discontinued [Protonix] , (Reported) Discontinued Reason: No Longer Taking Entered as Reported by: PRADEEP ARAUZ on 10/29/16228 Last Action: Discontinued [Trazadone] , (Reported) Discontinued Reason: No Longer Taking Entered as Reported by: PRADEEP ARAUZ on 10/29/16134 Last Action: Discontinued Review of Systems Review of Systems Constitutional: No chills, No diaphoresis, No dizziness, No fever, No malaise EENTM: No hearing loss, No blurred vision Respiratory: No cough, No dyspnea on exertion Cardiovascular: No chest pain, No palpitations, No syncope Gastrointestinal: No abdominal pain, No constipation, No diarrhea Genitourinary: No decreased output, No dysuria, No frequency Musculoskeletal: no symptoms reported Skin: No change in color; dryness (BL LE), other (recent toe nail extraction on left foot.) Psychiatric/Neurological: Pre-Existing Deficit (conversion disorder, schitzophrenia ) Hematologic/Lymphatic: No Symptoms Reported Immunological/Allergic: no symptoms reported (SAUCE,REBECCA) Past Qchjnhf-Zpzodk-Pahyzp Hx Patient Social History Tobacco Use?: Yes Tobacco type used: Cigarettes Substance use?: No Alcohol Use?: No (SAUCE,REBECCA) Immunizations Up To Date First/Initial COVID19 Vaccinat: UNKNOWN COVID19 Vaccine 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: DIANA (SAUCE,REBECCA) Past Medical History Respiratory: Yes Asthma, COPD Cardiac: Yes Hypertension Neurological: Yes (Paraparesis) Seizure Disorder Genitourinary: No Gastrointestinal: No Gastroesophageal Reflux, Chronic Constipation Musculoskeletal: Yes (chronic pain disorder, paraparesis) Endocrine: Yes Diabetes, Insulin dep, Hypothyroidsim HEENT: No Cancer: No Psychosocial: Yes (Mood disorder) PTSD, Schizophrenia, Depression Integumentary: No (SAUCE,REBECCA) Physical Exam Vital Signs Vital Signs - First Documented 06/20/22 08:30 Temp 35.7 Pulse 77 Resp 16 B/P (MAP) 154/83 (106) Pulse Ox 99 O2 Delivery Room Air (RIZWAN YANES MD) Vital Signs Capillary Refill : Less Than 3 Seconds (SACLAY,REBECCA) Height, Weight, BMI Height: 5'8.00" Weight: 225lbs. oz. [id number]; 38.00 BMI Method:Estimated General Appearance: No Apparent Distress, WD/WN Eyes: Bilateral Eye PERRL, Bilateral Eye EOMI HEENT: PERRL/EOMI, Normal ENT Inspection Neck: Normal Inspection, Non Tender, Supple Respiratory: Chest Non Tender, No Accessory Muscle Use, No Respiratory Distress, Wheezing (insiratory and expiratory) Cardiovascular: Regular Rate, Rhythm, No Gallop, No Murmur, Normal Peripheral Pulses Gastrointestinal: Normal Bowel Sounds, No Organomegaly, No Pulsatile Mass, Non Tender, Soft Extremity: Normal Capillary Refill, Non Tender, No Calf Tenderness, No Pedal Edema Neurologic/Psychiatric: Alert, Oriented x3, Depressed Affect Skin: Normal Color, Warm/Dry Lymphatic: No Adenopathy (SAUCE,REBECCA) Progress/Results/Core Measures Suspected Sepsis SIRS Temperature: Pulse: 77 Respiratory Rate: 16 Blood Pressure 154 /83 Mean: 106 (SAUCE,REBECCA) SIRS Laboratory Tests 06/20/22 09:25: White Blood Count 9.7 Laboratory Tests 06/20/22 09:25: Creatinine 0.84, Platelet Count 288 (RIZWAN YANES MD) Results/Orders Lab Results Laboratory Tests Test 06/20/22 09:25 Range/Units White Blood Count 9.7 4.3-11.0 10^3/uL Red Blood Count 4.53 3.80-5.11 10^6/uL Hemoglobin 14.8 11.5-16.0 g/dL Hematocrit 44 35-52 % Mean Corpuscular Volume 97 80-99 fL Mean Corpuscular Hemoglobin 33 25-34 pg Mean Corpuscular Hemoglobin Concent 34 32-36 g/dL Red Cell Distribution Width 12.5 10.0-14.5 % Platelet Count 288 130-400 10^3/uL Mean Platelet Volume 10.5 9.0-12.2 fL Immature Granulocyte % (Auto) 0 % Neutrophils (%) (Auto) 74 42-75 % Lymphocytes (%) (Auto) 17 12-44 % Monocytes (%) (Auto) 6 0-12 % Eosinophils (%) (Auto) 2 0-10 % Basophils (%) (Auto) 1 0-10 % Neutrophils # (Auto) 7.1 1.8-7.8 10^3/uL Lymphocytes # (Auto) 1.6 1.0-4.0 10^3/uL Monocytes # (Auto) 0.6 0.0-1.0 10^3/uL Eosinophils # (Auto) 0.2 0.0-0.3 10^3/uL Basophils # (Auto) 0.1 0.0-0.1 10^3/uL Immature Granulocyte # (Auto) 0.0 0.0-0.1 10^3/uL Sodium Level 135 135-145 MMOL/L Potassium Level 4.3 3.6-5.0 MMOL/L Chloride Level 105 98-107 MMOL/L Carbon Dioxide Level 21 21-32 MMOL/L Anion Gap 9 5-14 MMOL/L Blood Urea Nitrogen 7 7-18 MG/DL Creatinine 0.84 0.60-1.30 MG/DL Estimat Glomerular Filtration Rate 86 BUN/Creatinine Ratio 8 Glucose Level 114 H 70-105 MG/DL Calcium Level 10.2 H 8.5-10.1 MG/DL (RIZWAN YANES MD) My Orders Orders - RIZWAN YANES MD Ed Iv/Invasive Line Start (06/20/22 09:17) Cbc With Automated Diff (06/20/22 09:17) Basic Metabolic Panel (06/20/22 09:17) Accucheck Prn (06/20/22 09:17) Ed Admission (Communication) (06/20/22 10:06) (RIZWAN YANES MD) Vital Signs/I&O 06/20/22 08:30 Temp 35.7 Pulse 77 Resp 16 B/P (MAP) 154/83 (106) Pulse Ox 99 O2 Delivery Room Air (RIZWAN YANES MD) Vital Signs/I&O Capillary Refill : Less Than 3 Seconds (REBECCA PAUL) Blood Pressure Mean: 106 Progress Note #1: Time: 09:26 Progress Note Patient seen and evaluated, 47-year-old with a history of mental health disorders and intellectual disability presents after accidental overdose by caregivers at her [facility] of her Lantus insulin. Patient was supposed to receive 20 units and received 100 units at approximately 730. I have reviewed and agree with the medical student's documentation. Exam pertinent for patient to is alert and oriented, complaining of feeling sleepy. Mild headache which caregiver states is chronic for her. Vital signs are stable. No focal neurologic deficits. Blood sugar at presentation was 171. Basic laboratory studies obtained, IV placed. CBC normal and basic metabolic panel reviewed with only outlier her glucose at 114. Case was discussed with Dr. Muñoz - hospitalist. No concerning findings for hypoglycemia at this time however due to length of duration of action of the Lantus will obs her in the hospital 24 hours with serial reevaluations of her blood sugar. Patient and caregiver are comfortable with plan of care. All questions have been sought and answered. Progress Note #2: Time: 10:16 Progress Note recheck blood sugar just prior to going to the floor - 87. Will give her some crackers. (RIZWAN YANES MD) Departure Communication (Admissions) Time/Spoke to Admitting Phy: 09:[address] Muñoz (RIZWAN YANES MD) Impression Primary Impression: Accidental overdose of insulin Disposition: ADMITTED INPATIENT Condition: Stable Admissions Decision to Admit Reason: Admit from ER (General) Decision to Admit/Date: Jun 20, 2022 Time/Decision to Admit Time: 09:25 (RIZWAN YANES MD) Departure-Patient Inst. Referrals: PRABHA RODRÍGUEZ MD (PCP/Family) Primary Care Physician Patient Instructions: ALCOHOL AND SUBSTANCE ABUSE Verification and Attestation of Medical Student E/M Service A medical student performed and documented this service in my presence. I reviewed and verified all information documented by the medical student and made modifications to such information, when appropriate. I personally performed the physical exam and medical decision making. Rizwan Yanes, Jun 20, 2022,09:28 (RIZWAN YANES MD) REBECCA PAUL Jun 20, 2022 08:54 RIZWAN YANES MD Jun 20, 2022 09:28
[2022-06-20 09:32] LABS: BASOPHILS # (AUTO) 0.1 10^3/uL (0.0-0.1); BASOPHILS % (AUTO) 1 % (0-10); EOSINOPHILS # (AUTO) 0.2 10^3/uL (0.0-0.3); EOSINOPHILS % (AUTO) 2 % (0-10); HEMATOCRIT 44 % (35-52); HEMOGLOBIN 14.8 g/dL (11.5-16.0); LYMPHOCYTES # (AUTO) 1.6 10^3/uL (1.0-4.0); LYMPHOCYTES % (AUTO) 17 % (12-44); MEAN CORPUSCULAR HEMOGLOBIN 33 pg (25-34); MEAN CORPUSCULAR HGB CONC 34 g/dL (32-36); MEAN CORPUSCULAR VOLUME 97 fL (80-99); MEAN PLATELET VOLUME 10.5 fL (9.0-12.2); MONOCYTES # (AUTO) 0.6 10^3/uL (0.0-1.0); MONOCYTES % (AUTO) 6 % (0-12); NEUTROPHILS # (AUTO) 7.1 10^3/uL (1.8-7.8); NEUTROPHILS % (AUTO) 74 % (42-75); PLATELET COUNT 288 10^3/uL (130-400); WHITE BLOOD COUNT 9.7 10^3/uL (4.3-11.0)
[2022-06-20 09:51] LABS: CALCIUM 10.2 MG/DL (8.5-10.1); CREATININE SERUM 0.84 MG/DL (0.60-1.30); POTASSIUM 4.3 MMOL/L (3.6-5.0)
[2022-06-20 10:29] VITALS: BP 136/76
[2022-06-20] MEDS ORDERED: LACTULOSE SYRUP 10GM/15ML (ENULOSE) 30ML UDC PO PRN (10:30)
[2022-06-20] MEDS ORDERED: polyethylene glycoL POWDER 17 GM (MIRALAX) PACK PO PRN (10:30)
[2022-06-20] MEDS ORDERED: ANTACID SUSP 30 ML UDC (MYLANTA) PO PRN (10:30)
[2022-06-20] MEDS ORDERED: diphenhydrAMINE 25 MG TAB (BENADRYL) PO PRN (10:30)
[2022-06-20] MEDS ORDERED: MELATONIN 3 MG TABLET PO PRN (10:30)
[2022-06-20] MEDS ORDERED: CALCIUM CARBONATE 500 MG (TUMS) TAB.CHEW PO PRN (10:30)
[2022-06-20] MEDS ORDERED: diphenhydrAMINE 50 MG/ML INJ (BENADRYL) IVP PRN (10:30)
[2022-06-20] MEDS ORDERED: BISACODYL 10 MG SUPP (DULCOLAX) PR PRN (10:30)
[2022-06-20] MEDS ORDERED: MILK OF MAGNESIA 400 MG/5 ML 30 ML UDC PO PRN (10:30)
[2022-06-20] MEDS ORDERED: ONDANSETRON 4 MG/2 ML (SDV) Z0FRAN IV PRN (10:30)
[2022-06-20] MEDS ORDERED: ONDANSETRON 4 MG (ZOFRAN) ORAL DISSOLVE TAB PO PRN (10:30)
[2022-06-20] MEDS ORDERED: ACETAMINOPHEN 325 MG TABLET PO PRN (10:30)
[2022-06-20 11:47] VITALS: BP 135/62
[2022-06-20] MEDS ORDERED: LEVE500T6 PO (15:28)
[2022-06-20] MEDS ORDERED: LITH600C PO (15:28)
[2022-06-20] MEDS ORDERED: CLN.1T PO (15:28)
[2022-06-20] MEDS ORDERED: ALB0.5V INH (15:28)
[2022-06-20] MEDS ORDERED: ALBU18HF2 INH (15:28)
[2022-06-20] MEDS ORDERED: MELO15TA39 PO (15:28)
[2022-06-20] MEDS ORDERED: TEMA30CA PO (15:28)
[2022-06-20] MEDS ORDERED: PALI819S IM (15:28)
[2022-06-20] MEDS ORDERED: [UNRECOGNIZED DRUG - CODE] PO (15:28)
[2022-06-20] MEDS ORDERED: CETI10TA17 PO (15:28)
[2022-06-20] MEDS ORDERED: ACET325T38 PO (15:28)
[2022-06-20] MEDS ORDERED: BUDE10.26 INH (15:28)
[2022-06-20] MEDS ORDERED: INSU100I14 SC (15:28)
[2022-06-20] MEDS ORDERED: TRAZ-227 PO (15:28)
[2022-06-20] MEDS ORDERED: MOM10U PO (15:28)
[2022-06-20] MEDS ORDERED: LISI5TAB20 PO (15:28)
[2022-06-20] MEDS ORDERED: NEOM1OIN19 TP (15:28)
[2022-06-20] MEDS ORDERED: INSU100I76 SC (15:28)
[2022-06-20] MEDS ORDERED: SIMV20TA26 PO (15:28)
[2022-06-20] MEDS ORDERED: ARIP5TAB57 PO (15:28)
[2022-06-20] MEDS ORDERED: SPIR50TA4 PO (15:28)
[2022-06-20] MEDS ORDERED: MAGN296S68 PO (15:28)
[2022-06-20] MEDS ORDERED: PREG100C55 PO (15:28)
[2022-06-20] MEDS ORDERED: FLUT9.9S NSEACH (15:28)
[2022-06-20] MEDS ORDERED: VALA10007 PO (15:28)
[2022-06-20] MEDS ORDERED: LACT10SO3 PO (15:28)
[2022-06-20] MEDS ORDERED: CALC500T7 PO (15:28)
[2022-06-20 15:30] VITALS: BP 112/58
[2022-06-20] MEDS ORDERED: [UNRECOGNIZED DRUG - REMARK] PO SCH (15:45)
--- NOTE | 2022-06-20 16:31 | History & Physical-Hospitalist ---
History of Present Illness HPI/Chief Complaint Little Baker is a 47 year old female with PMH HTN, T2DM, depression, anxiety, bipolar disorder, schizophrenia, who presented after an accidental overdose of insulin. She does not have any symptoms. She was accidentally given Lantus 100 units this morning instead of 20 units. She has otherwise been in her normal state of health. She does report a headache. She denies shakiness and sweating. Source: patient, RN/MD Exam Limitations: no limitations Date Seen 06/20/22 Time Seen by a Provider: 11:45 Attending Physician Shiraz Huber MD PCP Admitting Physician: Nichole Gallardo MD Attending Physician: Nichole Gallardo MD Referring Physician Date of Admission Jun 20, 2022 at 10:07 Home Medications & Allergies Home Medications Reviewed patient Home Medication Reconciliation performed by pharmacy medication reconciliations rim technician and/or nursing. Patients Allergies have been reviewed. Allergies Allergies Coded Allergies chlorpromazine (Verified Allergy, Unknown, 10/29/16) haloperidol (Verified Allergy, Unknown, 06/20/22) phenobarbital (Verified Allergy, Unknown, 10/29/16) Past Rxldyuw-Xdbknp-Qtyaua Hx Patient Social History Tobacco Use?: Yes Tobacco type used: Cigarettes Smoking Status: Current Everyday Smoker Substance use?: No Alcohol Use?: Yes Alcohol type: Beer Alcohol Frequency: Couple times a week Pt feels they are or have been: No Immunizations Up To Date First/Initial COVID19 Vaccinat: UNKNOWN Current Status Communicates: Verbally Primary Language: Japanese Preferred Spoken Language: Japanese Is interpretation needed?: No Sensory deficits: Vision impairment Past Medical History Asthma, COPD Hypertension Seizure Disorder Gastroesophageal Reflux, Chronic Constipation Diabetes, Insulin dep, Hypothyroidsim PTSD, Schizophrenia, Depression Family Medical History No Pertinent Family Hx Review of Systems Constitutional: no symptoms reported, see HPI Physical Exam Physical Exam Vital Signs Vital Signs - First Documented 06/20/22 08:30 Temp 35.7 Pulse 77 Resp 16 B/P (MAP) 154/83 (106) Pulse Ox 99 O2 Delivery Room Air Capillary Refill : Less Than 3 Seconds Height, Weight, BMI Height: 5'8.00" Weight: 225lbs. oz. 102.205523hh; 38.22 BMI Method:Estimated General Appearance: No Apparent Distress, Obese HEENT: PERRL/EOMI, Pharynx Normal Neck: Normal Inspection, Supple Respiratory: Lungs Clear, No Respiratory Distress Cardiovascular: Regular Rate, Rhythm, No Murmur Gastrointestinal: Normal Bowel Sounds, Soft Extremity: Normal Inspection, No Pedal Edema Neurologic/Psychiatric: Alert, Normal Mood/Affect Skin: Normal Color, Warm/Dry Results Results/Procedures Labs Laboratory Tests 06/20/22 09:25 Patient resulted labs reviewed. 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
[2022-06-20] MEDS: cloNIDine 0.1 MG (CATAPRES) TAB PO SCH (17:25)
[2022-06-20 19:11] VITALS: BP 124/60
[2022-06-20] MEDS: SPIRONOLACTONE 25 MG (ALDACTONE) TAB PO SCH (19:46)
[2022-06-20] MEDS: PREGABALIN 100 MG (LYRICA) CAPSULE PO SCH (19:46)
[2022-06-20] MEDS: LACTULOSE SYRUP 10GM/15ML (ENULOSE) 30ML UDC PO SCH (19:47)
[2022-06-20] MEDS: LORATADINE (CLARITIN) 10 MG TAB PO SCH (19:47)
[2022-06-20] MEDS: LITHIUM CARBONATE 150 MG CAP PO SCH (19:47)
[2022-06-20] MEDS ORDERED: NON-FORMULARY MEDICATION 1 EA EA (Temazepam 30 MG) PO SCH (21:00)
[2022-06-20] MEDS ORDERED: NON-FORMULARY MEDICATION 1 EA EA (Simvastatin 20 MG) PO SCH (21:00)
[2022-06-20] MEDS ORDERED: traZODone 100 MG (DESYREL) TAB PO SCH (21:00)
[2022-06-20] MEDS ORDERED: AtorvaSTATin TABLET 10 MG TABLET PO SCH (21:00)
[2022-06-20] MEDS ORDERED: NON-FORMULARY MEDICATION 1 EA EA (Spironolactone 50 MG) PO SCH (21:00)
[2022-06-20] MEDS ORDERED: TEMAZEPAM 15 MG (RESTORIL) CAP PO SCH (21:00)
[2022-06-20] MEDS ORDERED: NON-FORMULARY MEDICATION 1 EA EA (Budesonide/Formoterol Fumarate (Budesonide-Formoterol 16 INH SCH (21:00)
[2022-06-20] MEDS ORDERED: LACTULOSE 10 GM/15 ML 30 ML POUR BOTTLE FOR ENEMA PO SCH (21:00)
[2022-06-20] MEDS ORDERED: NON-FORMULARY MEDICATION 1 EA EA (Aripiprazole 5 MG) PO SCH (21:00)
[2022-06-20] MEDS ORDERED: LITHIUM CARBONATE 600 MG PO SCH (21:00)
[2022-06-20] MEDS: DOCUSATE SODIUM 100 MG (COLACE) CAP PO SCH (21:06)
[2022-06-20] MEDS: SENNOSIDES 8.6 MG (SENOKOT) TAB PO SCH (21:07)
[2022-06-20] MEDS: RT--FLUTICASONE/SALMETEROL 232-14 (AIRDUO RespiCLICK) IH SCH (22:22)
[2022-06-20 23:42] VITALS: BP 115/59
[2022-06-21 03:07] VITALS: BP 112/59
[2022-06-21] MEDS: RT--FLUTICASONE/SALMETEROL 232-14 (AIRDUO RespiCLICK) IH SCH (06:43)
[2022-06-21 07:52] VITALS: BP 123/59
[2022-06-21] MEDS ORDERED: NON-FORMULARY MEDICATION 1 EA EA (Fluticasone Propionate (Flonase Allergy Relief) 2 SPRAY) NSEACH SCH (09:00)
[2022-06-21] MEDS ORDERED: FLUTICASONE NASAL SPRAY (FLONASE) 16 GM BTL NS SCH (09:00)
[2022-06-21] MEDS ORDERED: NON-FORMULARY MEDICATION 1 EA EA (Meloxicam 15 MG) PO SCH (09:00)
[2022-06-21] MEDS ORDERED: VALACYCLOVIR 500 MG TAB (VALTREX) PO SCH (09:00)
[2022-06-21] MEDS ORDERED: NON-FORMULARY MEDICATION 1 EA EA (Valacyclovir HCl (Valacyclovir) 1,000 MG) PO SCH (09:00)
[2022-06-21] MEDS ORDERED: NON-FORMULARY MEDICATION 1 EA EA (Cetirizine HCl 10 MG) PO SCH (09:00)
[2022-06-21] MEDS ORDERED: lisINopril 5 MG (PRINIVIL) TABLET PO SCH (09:00)
[2022-06-21] MEDS ORDERED: MELOXICAM 7.5 MG (MOBIC) TABLET PO SCH (09:00)
[2022-06-21] MEDS ORDERED: LORATADINE (CLARITIN) 10 MG TAB PO SCH (09:00)
[2022-06-21] MEDS: cloNIDine 0.1 MG (CATAPRES) TAB PO SCH (09:01)
[2022-06-21] MEDS: SENNOSIDES 8.6 MG (SENOKOT) TAB PO SCH (09:01)
[2022-06-21] MEDS: PREGABALIN 100 MG (LYRICA) CAPSULE PO SCH (09:01)
[2022-06-21] MEDS: DOCUSATE SODIUM 100 MG (COLACE) CAP PO SCH (09:01)
[2022-06-21] MEDS: SPIRONOLACTONE 25 MG (ALDACTONE) TAB PO SCH (09:02)
[2022-06-21] MEDS: LACTULOSE SYRUP 10GM/15ML (ENULOSE) 30ML UDC PO SCH (09:02)
[2022-06-21] MEDS: LITHIUM CARBONATE 150 MG CAP PO SCH (09:02)
[2022-06-21] MEDS: LORATADINE (CLARITIN) 10 MG TAB PO SCH (09:02)
[2022-06-21] MEDS ORDERED: NICOTINE 14 MG (NICODERM) PATCH TD SCH (09:38)
[2022-06-21] MEDS ORDERED: NICOTINE 2 MG LOZENGE (COMMIT) MM PRN (09:45)
--- NOTE | 2022-06-21 17:15 | Discharge Summary ---
Discharge Summary Hospital Course Problems/Dx: (1) Accidental overdose of insulin Status: Acute (2) T2DM (type 2 diabetes mellitus) Status: Chronic Qualifiers: (3) HTN (hypertension) Status: Chronic (4) Obesity Status: Chronic Hospital Course Date of Admission: Jun 20, 2022 at 10:07 Admission Diagnosis : Accidental overdose of insulin Family Physician/Provider: Shiraz Rodríguez MD Date of Discharge: 06/21/22 Discharge Diagnosis: Accidental overdose of insulin Hospital Course: Little Baker is a 47 year old female who was admitted after receiving an accidental overdose of insulin. She normally takes 20 units or Lantus twice daily. She was given a dose of 100 units accidentally. She did not have any issues with hypoglycemia while she was observed for 24 hours. She should resume her insulin regimen upon returning home. She should take her Novolog with meals today and her Lantus this evening. She was discharged back to [place] in stable condition. Labs and Pending Lab Test: Laboratory Tests 06/20/22 18:02: Glucometer 122H 06/20/22 20:04: Glucometer 113H 06/20/22 22:12: Glucometer 175H 06/20/22 23:39: Glucometer 142H 06/21/22 02:02: Glucometer 99 06/21/22 03:03: Glucometer 105 06/21/22 04:07: Glucometer 75 06/21/22 05:24: Glucometer 168H 06/21/22 06:06: Glucometer 94 06/21/22 07:06: Glucometer 74 06/21/22 08:07: Glucometer 151H 06/21/22 09:08: Glucometer 145H Home Meds Active Reported Ventolin Hfa (Albuterol Sulfate) 90 Mcg Hfa.aer.ad 2 Puff INH Q4H PRN Allergy Relief (Fexofenadine HCl) 60 Mg Tablet 60 Mg PO Q12H Milk of Magnesia (Magnesium Hydroxide) 2,400 Mg/10 Ml Oral.susp 30 Ml PO DAILY PRN Magnesium Citrate 296 Ml Solution 296 Ml PO DAILY PRN Novolog Flexpen (Insulin Aspart) 100 Unit/Ml (3 Ml) Solution Units SC AC SLIDING SCALE: 180-240=8 UNITS 251-300=10 UNITS 301-350=12 UNITS 351-400=15 UNITS 401-450=20 UNITS Albuterol Sulfate 2.5 Mg/0.5 Ml Vial.neb 2.5 Mg INH Q4H PRN Tylenol (Acetaminophen) 325 Mg Tablet 650 Mg PO Q6H PRN Triple Antibiotic Ointment Pkt (Neomycin/Bacitracin/Polymyxinb) 3.5 Mg-400 Unit- 5,000 Unit/Gram Oint.pack 1 Applic TP BID APPLY TO LEFT LEG ABSCESS Budesonide-Formoterol 160-4.5 (Budesonide/Formoterol Fumarate) 160 Mcg-4.5 Mcg/Actuation Hfa.aer.ad 2 Puff INH BID Spironolactone 50 Mg Tablet 50 Mg PO BID Pregabalin 100 Mg Capsule 100 Mg PO BID [place] Carbonate 600 Mg Capsule 600 Mg PO BID Levetiracetam 500 Mg Tablet 1,500 Mg PO BID TAKES 3 (500MG) TABS Insulin Glargine-Yfgn 100 Unit/Ml (3 Ml) Insuln.pen 20 Units SC BID Lactulose 10 Gram/15 Ml Solution 30 Ml PO BID Clonidine HCl 0.1 Mg Tablet 0.1 Mg PO 0730,1600 Simvastatin 20 Mg Tablet 20 Mg PO HS Valacyclovir (Valacyclovir HCl) 1,000 Mg Tablet 1,000 Mg PO DAILY Tums (Calcium Carbonate) 200 Mg Calcium (500 Mg) Tab.chew 500 Mg PO HS Trazodone HCl 100 Mg Tablet 100 Mg PO HS Temazepam 30 Mg Capsule 30 Mg PO HS Meloxicam 15 Mg Tablet 15 Mg PO DAILY Lisinopril 5 Mg Tablet 5 Mg PO DAILY Invega Trinza (Paliperidone Palmitate) 819 Mg/2.63 Ml Syringe 819 Mg IM EVERY 3 MONTHS Flonase Allergy Relief (Fluticasone Propionate) 50 Mcg/Actuation [place].susp 2 [place] NSEACH DAILY Cetirizine HCl 10 Mg Tablet 10 Mg PO DAILY Aripiprazole 5 Mg Tablet 5 Mg PO HS Assessment/Pt Instructions See instructions Discharge Planning: <30 minutes discharge planning Discharge Instructions Discharge Diet: ADA Diet Activity as Tolerated: Yes Discharge Physical Examination Vital Signs Vital Signs Date Time Temp Pulse Resp B/P (MAP) Pulse Ox O2 Delivery O2 Flow Rate FiO2 06/21/22 10:59 06/21/22 08:48 Room Air 06/21/22 07:52 36.4 62 18 97 General Appearance: No Apparent Distress, Obese Respiratory: Lungs Clear, No Respiratory Distress Cardiovascular: Regular Rate, Rhythm, No Murmur Gastrointestinal: Normal Bowel Sounds, Soft Extremity: Normal Inspection, No Pedal Edema Skin: Normal Color, Warm/Dry Neurologic/Psychiatric: Alert, Normal Mood/Affect Allergies: Coded Allergies: chlorpromazine (Verified Allergy, Unknown, 10/29/16) haloperidol (Verified Allergy, Unknown, 06/20/22) phenobarbital (Verified Allergy, Unknown, 10/29/16) Copy Copies To 1: SHIRAZ RODRÍGUEZ MD Discharge Summary Date of Admission Jun 20, 2022 at 10:07 Date of Discharge Jun 21, 2022 at 11:11 Discharge Date: Jun 21, 2022 Discharge Time: 11:11 Admission Diagnosis Accidental overdose of insulin Discharge Diagnosis Accidental overdose of insulin T2DM HTN Depression Anxiety Bipolar Schizophrenia (1) Accidental overdose of insulin Status: Acute (2) T2DM (type 2 diabetes mellitus) Status: Chronic Qualifiers: (3) HTN (hypertension) Status: Chronic (4) Obesity Status: Chronic ZARINA GALLARDO MD Jun 21, 2022 17:15
[2022-06-22] MEDS ORDERED: PATCH REMOVAL TP SCH (09:00)
== END 2022-06-21 09:55 | disposition home or self-care (01) ==
LOC: EDUNIT# 08:26 → ER 08:28 → UNDOADMOB 10:07 → 4TH 10:07 → UNDODISOB 06-21 09:55
PROVIDERS: ADMIT Internal Medicine; ATTEND Internal Medicine
DX: T38.3X1A Poisoning by insulin and oral hypoglycemic [antidiabetic] drugs, accidental (unintentional), initial encounter (principal); E11.9 Type 2 diabetes mellitus without complications; I10 Essential (primary) hypertension; E66.9 Obesity, unspecified; F17.210 Nicotine dependence, cigarettes, uncomplicated; F41.9 Anxiety disorder, unspecified; F31.9 Bipolar disorder, unspecified; F20.9 Schizophrenia, unspecified; Z68.38 Body mass index [BMI] 38.0-38.9, adult; Z79.4 Long term (current) use of insulin; Y92.9 Unspecified place or not applicable
CPT/HCPCS: 80048; 82947 ×2; 85025; 94640; 99283; G0378; 36415

== ENCOUNTER → 2022-07-30 | Outpatient (CLI) | payer MEDICAID ==
[~2022-07-30] MED LIST changes: +ACET325T38 PO; +ALB0.5V INH; +ALBU18HF2 INH; +ARIP5TAB57 PO; +BUDE10.26 INH; +CALC500T7 PO; +CETI10TA17 PO; +CLN.1T PO; +FLUT9.9S NSEACH; +INSU100I14 SC; +INSU100I76 SC; +LACT10SO3 PO; +LEVE500T6 PO; +LISI5TAB20 PO; +LITH600C PO; +MAGN296S68 PO; +MELO15TA39 PO; +MOM10U PO; +NEOM1OIN19 TP; +PALI819S IM; +PREG100C55 PO; +SIMV20TA26 PO; +SPIR50TA4 PO; +TEMA30CA PO; +TRAZ-227 PO; +VALA10007 PO; +[UNRECOGNIZED DRUG - CODE] PO
--- NOTE | 2022-07-30 16:26 | Diagnostic Imaging Report ---
INDICATION: Bilateral breast lumps. FINDINGS: Sonographic interrogation of the areas of lumps in the outer portions of both breasts was performed. No sonographic abnormality is identified. No solid or cystic mass is detected. IMPRESSION: No sonographic abnormality is detected. ACR BI-RADS Category 1: Negative. Dictated on workstation # [id number]
--- NOTE | 2022-07-30 16:28 | Diagnostic Imaging Report ---
INDICATION: Bilateral breast lumps. COMPARISON: Correlation is made with the prior mammograms from 02/14/2022 and 05/17/2020. TECHNIQUE: 2D and 3D bilateral diagnostic mammography was performed with CAD. FINDINGS: Both breasts are heterogeneously dense, limiting the sensitivity of mammography. There is a fibronodular parenchymal pattern. No dominant mass is seen. No malignant-appearing microcalcifications are seen. There are occasional benign calcifications. The axillae are unremarkable. IMPRESSION: No mammographic features suspicious for malignancy are identified. Even so, directed sonographic interrogation of the areas of palpable lump is recommended and will be performed today. ACR BI-RADS Category 0: Incomplete. (Needs additional imaging evaluation). Result letter will be mailed to the patient. Note: At least 10% of breast cancer is not imaged by mammography. Dictated on workstation # [id number]
== END ==
LOC: RAD 12:25
PROVIDERS: ATTEND Family Medicine
DX: N63.20 Unspecified lump in the left breast, unspecified quadrant (principal); N63.10 Unspecified lump in the right breast, unspecified quadrant
CPT/HCPCS: 76642; 77066; G0279; 77062

== ENCOUNTER → 2022-07-31 | Outpatient (CLI) | payer MEDICAID | LOC: WOUNDCARE 09:36 | PROVIDERS: ATTEND Family Medicine | DX: L97.512 Non-pressure chronic ulcer of other part of right foot with fat layer exposed (principal); E11.621 Type 2 diabetes mellitus with foot ulcer; E11.40 Type 2 diabetes mellitus with diabetic neuropathy, unspecified; E66.01 Morbid (severe) obesity due to excess calories; A49.9 Bacterial infection, unspecified; I70.235 Atherosclerosis of native arteries of right leg with ulceration of other part of foot; F17.210 Nicotine dependence, cigarettes, uncomplicated; Z68.38 Body mass index [BMI] 38.0-38.9, adult | CPT/HCPCS: 11042; 82306; 83036; 85652; 86141; 87070; 87077; 87205; A6197; G0463; 36415 ==

== ENCOUNTER → 2022-08-07 | Outpatient (CLI) | payer MEDICAID | LOC: WOUNDCARE 10:08 | PROVIDERS: ATTEND Family Medicine | DX: L97.512 Non-pressure chronic ulcer of other part of right foot with fat layer exposed (principal); E11.621 Type 2 diabetes mellitus with foot ulcer; E11.40 Type 2 diabetes mellitus with diabetic neuropathy, unspecified; E66.01 Morbid (severe) obesity due to excess calories; I70.235 Atherosclerosis of native arteries of right leg with ulceration of other part of foot; F17.210 Nicotine dependence, cigarettes, uncomplicated; Z68.38 Body mass index [BMI] 38.0-38.9, adult; B35.3 Tinea pedis; E11.52 Type 2 diabetes mellitus with diabetic peripheral angiopathy with gangrene; I96 Gangrene, not elsewhere classified | CPT/HCPCS: 11042; G0463 ==

== ENCOUNTER → 2022-08-14 | Outpatient (CLI) | payer MEDICAID | LOC: WOUNDCARE 09:17 | PROVIDERS: ATTEND Family Medicine | DX: L97.512 Non-pressure chronic ulcer of other part of right foot with fat layer exposed (principal); E11.621 Type 2 diabetes mellitus with foot ulcer; E11.40 Type 2 diabetes mellitus with diabetic neuropathy, unspecified; E66.01 Morbid (severe) obesity due to excess calories; I70.235 Atherosclerosis of native arteries of right leg with ulceration of other part of foot; F17.210 Nicotine dependence, cigarettes, uncomplicated; B35.3 Tinea pedis; Z68.38 Body mass index [BMI] 38.0-38.9, adult | CPT/HCPCS: 99212 ==